=== PATIENT | male | born 1960 | race Native Hawaiian/Other Pacific Islander ===

== ENCOUNTER 2016-10-23 23:10 | Emergency (ER) | payer BC ==
[~2016-10-23] VITALS: Ht 172.7 cm; Wt 77.1 kg
[2016-10-23 23:28] VITALS: BP 231/108
[2016-10-23 23:39] LABS: PLATELET COUNT 208 K/uL (142-355)
[2016-10-23 23:47] LABS: POTASSIUM 3.8 mmol/L (3.6-5.2); SODIUM 127 mmol/L (136-145)
[2016-10-24 00:52] VITALS: TEMP 98.7
== END 2016-10-24 00:52 | disposition home or self-care (01) ==
LOC: ED 23:10
DX: R07.89 Other chest pain (principal); E11.65 Type 2 diabetes mellitus with hyperglycemia; J44.9 Chronic obstructive pulmonary disease, unspecified; K80.20 Calculus of gallbladder without cholecystitis without obstruction
CPT/HCPCS: 80053; 82550; 83036; 84484; 85027; 86318; 93005; 96374; 99285; J2270

== ENCOUNTER 2017-04-13 09:33 | Emergency (ER) | payer BC ==
[~2017-04-13] VITALS: Ht 172.7 cm; Wt 74.8 kg
[2017-04-13 09:30] VITALS: TEMP 97.6
[2017-04-13 11:02] LABS: POTASSIUM 3.9 mmol/L (3.6-5.2); SODIUM 138 mmol/L (136-145)
[2017-04-13 11:03] LABS: PARTIAL THROMBOPLASTIN TIME 21.4 SECONDS (24.5-33.6)
[2017-04-13 11:04] LABS: PLATELET COUNT 208 K/uL (142-355)
[2017-04-13 11:30] VITALS: BP 104/62
== END 2017-04-13 11:30 | disposition short-term general hospital (02) ==
LOC: ED 09:33
DX: I21.3 ST elevation (STEMI) myocardial infarction of unspecified site (principal)
CPT/HCPCS: 36415; 80053; 82550; 84484; 85027; 85610; 85730; 92977; 93005; 96361; 96365; 96375; 96376; 99285; J1650; J2270; J2405; J3101; J3490

== ENCOUNTER 2017-07-26 14:47 | Outpatient (CLI) | payer BC | END 2017-07-26 15:50 | disposition home or self-care (01) | LOC: RAD 14:47 | DX: R07.81 Pleurodynia (principal) ==

== ENCOUNTER → 2018-04-16 23:03 | Outpatient (CLI) | payer BC | END | disposition home or self-care (01) | LOC: AMB 23:03 | DX: R53.1 Weakness (principal) ==

== ENCOUNTER 2018-05-09 09:04 | Observation (INO) | payer BC ==
[~2018-05-09] VITALS: Ht 172.7 cm; Wt 74.5 kg
[2018-05-09 09:08] VITALS: BP 141/67; TEMP 97.2
[2018-05-09 09:56] LABS: PLATELET COUNT 168 K/uL (142-355)
[2018-05-09 10:01] LABS: POTASSIUM 4.1 mmol/L (3.6-5.2); SODIUM 137 mmol/L (136-145)
[2018-05-09 10:09] LABS: PARTIAL THROMBOPLASTIN TIME 24.1 SECONDS (24.5-33.6)
[2018-05-09 11:00] VITALS: BP 141/67
[2018-05-09 13:47] VITALS: BP 148/80; TEMP 98.8; Ht 172.7 cm; Wt 74.5 kg
[2018-05-09 16:00] VITALS: BP 148/80; TEMP 98.8
[2018-05-09 20:16] VITALS: BP 157/80; TEMP 97.8
[2018-05-10 00:18] VITALS: BP 122/67; TEMP 98.3
[2018-05-10 04:26] VITALS: BP 133/74; TEMP 98.4
[2018-05-10 08:00] VITALS: BP 150/68; TEMP 97.7
[2018-05-10 12:00] VITALS: BP 133/72; TEMP 98.1
== END 2018-05-10 13:30 | disposition home or self-care (01) ==
LOC: ED 09:04 → MED/SURG 11:13
PROVIDERS: Internal Medicine
DX: R07.89 Other chest pain (principal); N40.0 Benign prostatic hyperplasia without lower urinary tract symptoms; N52.9 Male erectile dysfunction, unspecified; G35 Multiple sclerosis; I25.10 Atherosclerotic heart disease of native coronary artery without angina pectoris; J44.9 Chronic obstructive pulmonary disease, unspecified; E11.42 Type 2 diabetes mellitus with diabetic polyneuropathy; E03.8 Other specified hypothyroidism; E11.649 Type 2 diabetes mellitus with hypoglycemia without coma; R04.0 Epistaxis
CPT/HCPCS: 36415; 80048; 80053; 82550; 82948; 84484; 85027; 85610; 85730; 93005; 96374; 99220; 99283; G0378; J1815

== ENCOUNTER 2018-10-26 18:09 | Emergency (ER) | payer BC ==
[~2018-10-26] VITALS: Ht 172.7 cm; Wt 74.4 kg
[2018-10-26 19:16] LABS: PLATELET COUNT 215 K/uL (142-355)
[2018-10-26 19:31] LABS: POTASSIUM 3.9 mmol/L (3.6-5.2); SODIUM 141 mmol/L (136-145)
[2018-10-26 22:49] VITALS: BP 176/72; TEMP 98.1
== END 2018-10-26 22:53 | disposition home or self-care (01) ==
LOC: ED 18:09
PROVIDERS: Emergency Medicine
DX: N20.1 Calculus of ureter (principal); R07.89 Other chest pain
CPT/HCPCS: 36415; 80053; 82550; 82553; 84484; 85027; 85379; 93005; 96374; 96375; 96376; 99284; J1885; J2270; J2405; J2550; J7060; Q9963

== ENCOUNTER 2020-02-12 15:49 | Outpatient (CLI) | payer BC, OTHER ==
[~2020-02-12 15:49] MED LIST: ABILIFY2 MG PO; CLOP75TA2 PO; COZAAR100 MG PO; DULOXETINE HYDR60 MG PO; EUTHYROX50 MCG PO; GABA300C2 PO; METO100T37 PO
== END 2020-02-12 20:43 | disposition home or self-care (01) ==
LOC: LAB 15:49
DX: Z20.828 Contact with and (suspected) exposure to other viral communicable diseases (principal)
CPT/HCPCS: 87635; U0002

== ENCOUNTER 2020-02-22 12:06 | Observation (INO) | payer BC ==
[~2020-02-22] VITALS: Ht 172.7 cm; Wt 88.6 kg
[2020-02-22 12:23] VITALS: BP 149/78; TEMP 97.7
[2020-02-22 12:48] LABS: PLATELET COUNT 198 K/uL (142-355)
[2020-02-22 13:01] LABS: POTASSIUM 4.5 mmol/L (3.6-5.2); SODIUM 136 mmol/L (136-145)
[2020-02-22 13:19] VITALS: BP 136/74
[2020-02-22 13:32] LABS: PARTIAL THROMBOPLASTIN TIME 24.3 SECONDS (24.5-33.6)
[2020-02-22 14:24] VITALS: BP 155/85; TEMP 97.9; Ht 172.7 cm; Wt 88.6 kg
[2020-02-22] MEDS ORDERED: TRESIBA FL200 UNIT/M SC ×2 (14:44→14:45)
[2020-02-22] MEDS ORDERED: CRESTOR5 MG PO (14:45)
[2020-02-22] MEDS ORDERED: PANTOPRAZOLE 40MG TA PO (14:46)
[2020-02-22] MEDS ORDERED: ASPIRIN 81 LOW81 MG PO (14:48)
[2020-02-22 16:00] VITALS: BP 142/84; TEMP 97.9
[2020-02-22 20:03] VITALS: BP 134/67; TEMP 98.6
[2020-02-23 00:14] VITALS: BP 119/60; TEMP 98.1
[2020-02-23 04:05] VITALS: BP 122/65; TEMP 98
[2020-02-23 08:00] VITALS: BP 104/64; TEMP 97.5
[2020-02-23 12:00] VITALS: BP 168/70; TEMP 98.6
== END 2020-02-23 14:15 | disposition home or self-care (01) ==
LOC: ED 12:06 → MED/SURG 13:20
PROVIDERS: Hospitalist; ADMIT Internal Medicine Endocrinology, Diabetes & Metabolism
DX: R55 Syncope and collapse (principal); Z86.73 Personal history of transient ischemic attack (TIA), and cerebral infarction without residual deficits; G35 Multiple sclerosis; E03.8 Other specified hypothyroidism; I25.10 Atherosclerotic heart disease of native coronary artery without angina pectoris; J44.9 Chronic obstructive pulmonary disease, unspecified; E86.0 Dehydration; E11.42 Type 2 diabetes mellitus with diabetic polyneuropathy; F32.89 Other specified depressive episodes
CPT/HCPCS: 36415; 80053; 81000; 82550; 83880; 84443; 84484; 85027; 85610; 85730; 86318; 93005; 96360; 96361; 96375; 99220; 99284; G0378; J1650; J1815; J1885; J2405

== ENCOUNTER 2020-05-31 16:34 | Outpatient (CLI) | payer BC ==
[~2020-05-31 16:34] MED LIST changes: +ASPIRIN 81 LOW81 MG PO; +CRESTOR5 MG PO; +PANTOPRAZOLE 40MG TA PO; +TRESIBA FL200 UNIT/M SC
== END 2020-05-31 21:32 | disposition home or self-care (01) ==
LOC: RAD 16:34
DX: Z03.818 Encounter for observation for suspected exposure to other biological agents ruled out (principal)

== ENCOUNTER 2021-04-30 20:19 | Emergency (ER) | payer BC ==
[~2021-04-30] VITALS: Ht 172.7 cm; Wt 88.5 kg
[2021-04-30 21:05] LABS: PLATELET COUNT 243 K/uL (142-355)
[2021-04-30 21:16] LABS: SODIUM 141 mmol/L (136-145)
[2021-04-30 23:09] VITALS: BP 156/83; TEMP 98.3
== END 2021-04-30 23:09 | disposition home or self-care (01) ==
LOC: ED 20:19
PROVIDERS: Emergency Medicine
DX: R42 Dizziness and giddiness (principal); R11.2 Nausea with vomiting, unspecified; I10 Essential (primary) hypertension
CPT/HCPCS: 80053; 82150; 83690; 84484; 85008; 85027; 93005; 99283; J2405

== ENCOUNTER 2021-09-14 09:47 | Day surgery (SDC) | payer BC ==
[2021-07-29 10:57] LABS: PLATELET COUNT 158 K/uL (142-355)
[2021-07-29 11:18] LABS: POTASSIUM 4.1 mmol/L (3.6-5.2)
[~2021-09-14] VITALS: Ht 12.7 cm; Wt 0.0 kg
[~2021-09-14 09:47] MED LIST changes: +IBU800 MG PO; +NOVOLIN R100 UNIT/1 IM
== END 2021-09-14 15:02 | disposition home or self-care (01) ==
LOC: OR 09:47
PROVIDERS: ATTEND Internal Medicine Gastroenterology
PROC: 0DJD8ZZ Inspection of Lower Intestinal Tract, Via Natural or Artificial Opening Endoscopic (ICD-10-PCS; principal; 2021-09-14)
DX: K57.30 Diverticulosis of large intestine without perforation or abscess without bleeding (principal); K64.8 Other hemorrhoids; Z86.010 Personal history of colon polyps; Z12.11 Encounter for screening for malignant neoplasm of colon; Z20.822 Contact with and (suspected) exposure to COVID-19
CPT/HCPCS: 80053; 85027; 87635; J2405; J2704; U0003

== ENCOUNTER 2021-09-14 10:44 | Emergency (ER) | payer BC ==
[~2021-09-14] VITALS: Ht 172.7 cm; Wt 72.6 kg
[2021-09-14 10:44] VITALS: TEMP 97.4
[2021-09-14 10:56] LABS: PLATELET COUNT 200 K/uL (142-355)
[2021-09-14 11:25] LABS: PARTIAL THROMBOPLASTIN TIME 23.6 SECONDS (24.5-33.6)
[2021-09-14 13:00] VITALS: BP 139/72
== END 2021-09-14 13:15 | disposition home or self-care (01) ==
LOC: ED 10:44
PROVIDERS: Hospitalist
DX: E11.65 Type 2 diabetes mellitus with hyperglycemia (principal); Z79.4 Long term (current) use of insulin
CPT/HCPCS: 80053; 81002; 82550; 82948; 83880; 84484; 85027; 85610; 85730; 93005; 96360; 96361; 96375; 96376; 99284; J1815

== ENCOUNTER 2021-10-05 10:01 | Day surgery (SDC) | payer BC ==
[~2021-10-05] VITALS: Ht 30.5 cm; Wt 0.5 kg
== END 2021-10-05 13:56 | disposition home or self-care (01) ==
LOC: OR 10:01
PROVIDERS: ATTEND Internal Medicine Gastroenterology
PROC: 0DB88ZZ Excision of Small Intestine, Via Natural or Artificial Opening Endoscopic (ICD-10-PCS; principal; 2021-10-05)
PROC: 0DB68ZZ Excision of Stomach, Via Natural or Artificial Opening Endoscopic (ICD-10-PCS; 2021-10-05)
DX: K25.9 Gastric ulcer, unspecified as acute or chronic, without hemorrhage or perforation (principal); K29.00 Acute gastritis without bleeding; K29.80 Duodenitis without bleeding; K21.00 Gastro-esophageal reflux disease with esophagitis, without bleeding; D50.8 Other iron deficiency anemias; R11.2 Nausea with vomiting, unspecified; Z20.822 Contact with and (suspected) exposure to COVID-19
CPT/HCPCS: 87635; J2001; J2704; U0003

== ENCOUNTER 2022-06-06 13:17 | Emergency (ER) | payer BC ==
[~2022-06-06] VITALS: Ht 172.7 cm; Wt 81.6 kg
[2022-06-06 13:20] VITALS: TEMP 98.1
[2022-06-06 13:52] LABS: PLATELET COUNT 171 K/uL (142-355)
[2022-06-06 14:06] LABS: POTASSIUM 4.5 mmol/L (3.6-5.2)
[2022-06-06] MEDS ORDERED: TAMS0.4C PO (15:01)
[2022-06-06 15:54] VITALS: BP 162/85
== END 2022-06-06 16:05 | disposition home or self-care (01) ==
LOC: ED 13:17
PROVIDERS: Family Medicine
DX: N20.0 Calculus of kidney (principal); R51.9 Headache, unspecified; R11.2 Nausea with vomiting, unspecified; Z20.822 Contact with and (suspected) exposure to COVID-19
CPT/HCPCS: 80053; 81002; 82150; 82550; 83690; 84484; 85027; 87635; 93005; 96360; 96374; 96375; 99284; J1885; J2175; J2270; J2405; J2550; U0003

== ENCOUNTER 2022-07-17 14:29 | Emergency (ER) | payer BC ==
[~2022-07-17] VITALS: Ht 172.7 cm; Wt 63.5 kg
[~2022-07-17 14:29] MED LIST changes: +TAMS0.4C PO
[2022-07-17 15:18] LABS: PLATELET COUNT 213 K/uL (142-355)
[2022-07-17 15:19] LABS: POTASSIUM 5.5 mmol/L (3.6-5.2)
[2022-07-17 16:34] VITALS: BP 118/48; TEMP 97.1
[2022-07-17 17:12] LABS: POTASSIUM 4.3 mmol/L (3.6-5.2)
== END 2022-07-17 18:30 | disposition short-term general hospital (02) ==
LOC: ED 14:29
PROVIDERS: Emergency Medicine Emergency Medical Services
PROC: 0T9B70Z Drainage of Bladder with Drainage Device, Via Natural or Artificial Opening (ICD-10-PCS; principal; 2022-07-17)
DX: J18.9 Pneumonia, unspecified organism (principal); E11.10 Type 2 diabetes mellitus with ketoacidosis without coma; Z79.4 Long term (current) use of insulin; Z91.81 History of falling; Z11.52 Encounter for screening for COVID-19
CPT/HCPCS: 36415; 36600; 51702; 80048; 80053; 80307; 81002; 82805; 83605; 83735; 84484; 85027; 87040; 87635; 93005; 94664; 96360; 96361; 96365; 96366; 96375; 99284; J0696; J1815; J2060; J2405; J3490; U0003

== ENCOUNTER 2022-10-04 16:16 | Outpatient (CLI) | payer BC | END 2022-10-04 20:15 | disposition home or self-care (01) | LOC: RAD 16:16 | PROVIDERS: ATTEND Nurse Practitioner Family | DX: M25.532 Pain in left wrist (principal); M79.642 Pain in left hand ==

== ENCOUNTER 2022-10-17 11:12 | Outpatient (CLI) | payer BC ==
[~2022-10-17 11:12] MED LIST changes: -EUTHYROX50 MCG PO; +EUTHYROX88 MCG PO
[2022-10-18] MEDS ORDERED: ASPI325T40 PO (10:12)
[2022-10-18] MEDS ORDERED: DQZATE100 MG PO (10:12)
[2022-10-18] MEDS ORDERED: GABA400C2 PO (10:13)
[2022-10-18] MEDS ORDERED: LEVE5MLUD PO (10:13)
[2022-10-18] MEDS ORDERED: PULMICORT180 MCG/AC INH (10:14)
[2022-10-18] MEDS ORDERED: PANTOPRAZOLE 40MG TA PO (10:18)
[2022-10-18] MEDS ORDERED: TESSALON PER100 MG PO (10:18)
[2022-10-18] MEDS ORDERED: Z-PAK PO (10:19)
[2022-10-18] MEDS ORDERED: MIDO5TAB PO (10:20)
[2022-10-18] MEDS ORDERED: FLUC200T PO (10:22)
[2022-10-18] MEDS ORDERED: PROMETHAZINE12.5 M3 PO (10:24)
[2022-10-18] MEDS ORDERED: IPRATROPIUM/ INH (10:24)
[2022-10-18] MEDS ORDERED: LIPITOR80 MG PO (10:26)
[2022-10-18] MEDS ORDERED: NOVOLOG FL100 UNIT/M SC (10:26)
[2022-10-18] MEDS ORDERED: METOCLOPRAMIDE10 M1 PO (10:27)
[2022-10-18] MEDS ORDERED: NITR0.4S2 SL (10:27)
[2022-10-18] MEDS ORDERED: AMANTADINE50 MG/5 ML PO (10:28)
[2022-10-18] MEDS ORDERED: LEVEMIR FL100 UNIT/M SC (10:29)
== END 2022-10-17 19:01 | disposition home or self-care (01) ==
LOC: RAD 11:12
PROVIDERS: ATTEND Internal Medicine
DX: J40 Bronchitis, not specified as acute or chronic (principal)

== ENCOUNTER 2022-10-17 19:26 | Inpatient (IN) | payer BC ==
[~2022-10-17] VITALS: Ht 172.7 cm; Wt 60.1 kg
[2022-10-17 19:30] VITALS: BP 161/81; TEMP 104.9
[2022-10-17 20:27] LABS: PLATELET COUNT 126 K/uL (142-355)
[2022-10-17 20:29] LABS: POTASSIUM 2.5 mmol/L (3.6-5.2)
[2022-10-17 20:42] LABS: PARTIAL THROMBOPLASTIN TIME 27.6 SECONDS (24.5-33.6)
[2022-10-17 21:02] VITALS: TEMP 100.5
[2022-10-18] VITALS (7 sets, daily range): BP systolic 136–158; BP diastolic 61–90; TEMP 97.7–99.5; Ht 172.7 cm; Wt 60.1 kg
[2022-10-18 05:12] LABS: PLATELET COUNT 103 K/uL (142-355)
[2022-10-18] MEDS ORDERED: DQZATE100 MG PO (10:12)
[2022-10-18] MEDS ORDERED: ASPI325T40 PO (10:12)
[2022-10-18] MEDS ORDERED: LEVE5MLUD PO (10:13)
[2022-10-18] MEDS ORDERED: GABA400C2 PO (10:13)
[2022-10-18] MEDS ORDERED: PULMICORT180 MCG/AC INH (10:14)
[2022-10-18] MEDS ORDERED: PANTOPRAZOLE 40MG TA PO (10:18)
[2022-10-18] MEDS ORDERED: TESSALON PER100 MG PO (10:18)
[2022-10-18] MEDS ORDERED: Z-PAK PO (10:19)
[2022-10-18] MEDS ORDERED: MIDO5TAB PO (10:20)
[2022-10-18] MEDS ORDERED: FLUC200T PO (10:22)
[2022-10-18] MEDS ORDERED: PROMETHAZINE12.5 M3 PO (10:24)
[2022-10-18] MEDS ORDERED: IPRATROPIUM/ INH (10:24)
[2022-10-18] MEDS ORDERED: LIPITOR80 MG PO (10:26)
[2022-10-18] MEDS ORDERED: NOVOLOG FL100 UNIT/M SC (10:26)
[2022-10-18] MEDS ORDERED: NITR0.4S2 SL (10:27)
[2022-10-18] MEDS ORDERED: METOCLOPRAMIDE10 M1 PO (10:27)
[2022-10-18] MEDS ORDERED: AMANTADINE50 MG/5 ML PO (10:28)
[2022-10-18] MEDS ORDERED: LEVEMIR FL100 UNIT/M SC (10:29)
[2022-10-19] VITALS: BP 154/79; TEMP 99.7
[2022-10-19 04:00] VITALS: BP 158/91; TEMP 97.6
[2022-10-19 04:10] LABS: PLATELET COUNT 86 K/uL (142-355)
[2022-10-19 04:25] LABS: POTASSIUM 3.2 mmol/L (3.6-5.2)
[2022-10-19 08:00] VITALS: BP 144/87; TEMP 98.9
[2022-10-19] MEDS ORDERED: CEFD300C2 PO (09:18)
== END 2022-10-19 11:50 | disposition home or self-care (01) | DRG 203 ==
LOC: ED 19:26 → MED/SURG 21:00
PROVIDERS: Internal Medicine; ADMIT Emergency Medicine; ATTEND Internal Medicine
DX: J20.9 Acute bronchitis, unspecified (principal); R50.9 Fever, unspecified; I25.10 Atherosclerotic heart disease of native coronary artery without angina pectoris; I69.328 Other speech and language deficits following cerebral infarction; E03.8 Other specified hypothyroidism; E78.49 Other hyperlipidemia; I10 Essential (primary) hypertension; K21.9 Gastro-esophageal reflux disease without esophagitis; G35 Multiple sclerosis; Z93.1 Gastrostomy status; M15.8 Other polyosteoarthritis; N40.0 Benign prostatic hyperplasia without lower urinary tract symptoms; E11.42 Type 2 diabetes mellitus with diabetic polyneuropathy; E11.65 Type 2 diabetes mellitus with hyperglycemia; Z79.85 Long-term (current) use of injectable non-insulin antidiabetic drugs; E11.649 Type 2 diabetes mellitus with hypoglycemia without coma
CPT/HCPCS: 36415; 80048; 80053; 81002; 82550; 83605; 83880; 84484; 85027; 85610; 85730; 87040; 87635; 93005; 96360; 96361; 96365; 96366; 99284; J0696; J1815; U0003

== ENCOUNTER 2022-10-31 08:49 | Outpatient (CLI) | payer BC ==
[~2022-10-31] VITALS: Ht 172.7 cm; Wt 60.1 kg
[~2022-10-31 08:49] MED LIST changes: +AMANTADINE50 MG/5 ML PO; +ASPI325T40 PO; +CEFD300C2 PO; +DQZATE100 MG PO; +FLUC200T PO; +GABA400C2 PO; +IPRATROPIUM/ INH; +LEVE5MLUD PO; +LEVEMIR FL100 UNIT/M SC; +LIPITOR80 MG PO; +METOCLOPRAMIDE10 M1 PO; +MIDO5TAB PO; +NITR0.4S2 SL; +NOVOLOG FL100 UNIT/M SC; +PROMETHAZINE12.5 M3 PO; +PULMICORT180 MCG/AC INH; +TESSALON PER100 MG PO; +Z-PAK PO
[2022-10-31 08:55] VITALS: BP 94/503; TEMP 98.5
== END 2022-10-31 19:14 | disposition home or self-care (01) ==
LOC: INF 08:49
PROVIDERS: ATTEND Internal Medicine
DX: E86.0 Dehydration (principal)
CPT/HCPCS: 96360; 96361; J3490

== ENCOUNTER 2022-11-13 10:54 | Outpatient (CLI) | payer BC ==
[~2022-11-13] VITALS: Ht 165.1 cm; Wt 61.7 kg
[2022-11-13 11:05] VITALS: BP 113/68; TEMP 97.58
[2022-11-13 20:10] VITALS: BP 151/81; TEMP 97.9
== END 2022-11-13 19:05 | disposition home or self-care (01) ==
LOC: INF 10:54
PROVIDERS: ATTEND Internal Medicine
DX: E86.0 Dehydration (principal)
CPT/HCPCS: 96365; 96366; J3490

== ENCOUNTER 2022-11-17 16:55 | Outpatient (CLI) | payer BC ==
[~2022-11-17] VITALS: Ht 165.1 cm; Wt 61.7 kg
[2022-11-17 17:00] VITALS: BP 156/87; TEMP 97.8
[2022-11-17 17:08] VITALS: BP 156/87; TEMP 97
[2022-11-17 17:50] VITALS: BP 152/78; BP 156/78; TEMP 98
== END 2022-11-17 20:00 | disposition home or self-care (01) ==
LOC: INF 16:55
PROVIDERS: ATTEND Internal Medicine
DX: K94.29 Other complications of gastrostomy (principal)
CPT/HCPCS: 96365; J1580

== ENCOUNTER 2022-11-18 06:00 | Outpatient (CLI) | payer BC ==
[~2022-11-18] VITALS: Ht 172.7 cm; Wt 61.2 kg
[2022-11-18 14:55] VITALS: BP 113/65; TEMP 98.2
[2022-11-18 15:45] VITALS: BP 121/72; TEMP 97.8
== END 2022-11-18 20:15 | disposition home or self-care (01) ==
LOC: INF 06:00
PROVIDERS: ATTEND Internal Medicine
DX: K94.29 Other complications of gastrostomy (principal)
CPT/HCPCS: 80170; 96365; J1580

== ENCOUNTER 2022-11-19 14:43 | Outpatient (CLI) | payer BC ==
[~2022-11-19] VITALS: Ht 170.2 cm; Wt 61.2 kg
[2022-11-19 14:55] VITALS: BP 137/75; TEMP 98.3
[2022-11-19 15:34] VITALS: BP 153/74; TEMP 99.7
== END 2022-11-19 19:02 | disposition home or self-care (01) ==
LOC: INF 14:43
PROVIDERS: ATTEND Internal Medicine
DX: K94.29 Other complications of gastrostomy (principal)
CPT/HCPCS: 96365; J1580

== ENCOUNTER 2022-11-20 14:08 | Outpatient (CLI) | payer BC ==
[~2022-11-20] VITALS: Ht 172.7 cm; Wt 61.2 kg
[2022-11-20 14:20] VITALS: BP 127/74; TEMP 97.7
== END 2022-11-20 20:24 | disposition home or self-care (01) ==
LOC: INF 14:08
PROVIDERS: ATTEND Internal Medicine
DX: K94.29 Other complications of gastrostomy (principal)
CPT/HCPCS: 96365; J1580

== ENCOUNTER 2022-11-21 09:09 | Outpatient (CLI) | payer BC ==
[~2022-11-21] VITALS: Ht 172.7 cm; Wt 61.2 kg
[2022-11-21 14:22] VITALS: BP 126/72; TEMP 98
== END 2022-11-21 23:12 | disposition home or self-care (01) ==
LOC: INF 09:09
PROVIDERS: ATTEND Internal Medicine
DX: K94.29 Other complications of gastrostomy (principal)
CPT/HCPCS: 36415; 80170; 96365; J1580

== ENCOUNTER 2022-11-26 11:14 | Emergency (ER) | payer BC ==
[~2022-11-26] VITALS: Ht 172.7 cm; Wt 61.7 kg
[2022-11-26 11:23] VITALS: BP 139/83; TEMP 97.4
[2022-11-26 12:51] LABS: PLATELET COUNT 129 K/uL (142-355)
[2022-11-26 12:58] LABS: POTASSIUM 4.1 mmol/L (3.6-5.2)
== END 2022-11-26 15:46 | disposition home or self-care (01) ==
LOC: ED 11:14
PROVIDERS: Emergency Medicine
DX: K29.60 Other gastritis without bleeding (principal); E86.0 Dehydration
CPT/HCPCS: 36415; 80053; 85027; 93005; 96360; 96361; 96374; 96375; 99283; 99284; J2405; J2765; J3490

== ENCOUNTER 2022-12-10 06:15 | Emergency (ER) | payer BC ==
[~2022-12-10] VITALS: Ht 172.7 cm; Wt 81.6 kg
[2022-12-10 07:03] LABS: PLATELET COUNT 125 K/uL (142-355)
[2022-12-10 07:15] LABS: POTASSIUM 3.2 mmol/L (3.6-5.2)
[2022-12-10 07:19] LABS: PARTIAL THROMBOPLASTIN TIME 21.6 SECONDS (24.5-33.6)
[2022-12-10 08:49] VITALS: BP 126/69; TEMP 97.1
== END 2022-12-10 08:49 | disposition home or self-care (01) ==
LOC: ED 06:15
PROVIDERS: Emergency Medicine
PROC: 0HQ1XZZ Repair Face Skin, External Approach (ICD-10-PCS; principal; 2022-12-10)
DX: S01.112A Laceration without foreign body of left eyelid and periocular area, initial encounter (principal); R51.9 Headache, unspecified; S13.4XXA Sprain of ligaments of cervical spine, initial encounter; R04.0 Epistaxis; S00.83XA Contusion of other part of head, initial encounter; S40.011A Contusion of right shoulder, initial encounter; E87.6 Hypokalemia; D64.89 Other specified anemias; E11.9 Type 2 diabetes mellitus without complications; Z79.4 Long term (current) use of insulin; H61.23 Impacted cerumen, bilateral; W01.198A Fall on same level from slipping, tripping and stumbling with subsequent striking against other object, initial encounter; Y92.89 Other specified places as the place of occurrence of the external cause
CPT/HCPCS: 80053; 83735; 83880; 84484; 85027; 85610; 85730; 93005; 96374; 96375; 99284; J2270; J2405

== ENCOUNTER 2022-12-28 10:39 | Outpatient (CLI) | payer BC ==
[~2022-12-28] VITALS: Ht 172.7 cm; Wt 57.2 kg
[2022-12-28 10:47] VITALS: BP 103/66
== END 2022-12-28 19:34 | disposition home or self-care (01) ==
LOC: INF 10:39
PROVIDERS: ATTEND Internal Medicine
DX: E86.0 Dehydration (principal)
CPT/HCPCS: 96360; J3490

== ENCOUNTER 2023-01-08 14:29 | Observation (INO) | payer BC ==
[~2023-01-08] VITALS: Ht 165.1 cm; Wt 54.5 kg
[2023-01-08 14:35] VITALS: BP 126/73; TEMP 97.9
[2023-01-08 14:36] VITALS: BP 86/56
[2023-01-08 14:37] VITALS: BP 72/50
[2023-01-08 15:28] LABS: POTASSIUM 4.2 mmol/L (3.6-5.2)
[2023-01-08 15:29] LABS: PLATELET COUNT 157 K/uL (142-355)
[2023-01-08 15:56] VITALS: BP 124/65
[2023-01-08 20:17] VITALS: BP 156/78; TEMP 98.4; Ht 165.1 cm; Wt 54.5 kg
[2023-01-09] VITALS (10 sets, daily range): BP systolic 122–158; BP diastolic 66–80; TEMP 98.2–99.2
[2023-01-09 06:55] LABS: PLATELET COUNT 99 K/uL (142-355)
[2023-01-09] MEDS ORDERED: LEVE500T5 PO (12:42)
[2023-01-09] MEDS ORDERED: CLOP75TA2 PO (12:43)
[2023-01-09] MEDS ORDERED: KLOR-CON M2020 MEQ PO (12:46)
[2023-01-09] MEDS ORDERED: MEGESTROL AC20 MG PO (12:47)
[2023-01-09] MEDS ORDERED: AMANTADINE100 M1 PO (12:50)
[2023-01-10 03:39] VITALS: BP 145/69; TEMP 99.2
[2023-01-10 08:00] VITALS: BP 95/61; TEMP 97.9
[2023-01-10 12:00] VITALS: BP 103/63; TEMP 97.6
[2023-01-10] MEDS ORDERED: MEGE40TA32 PO (12:15)
== END 2023-01-10 17:11 | disposition home or self-care (01) ==
LOC: ED 14:29 → MED/SURG 19:30
PROVIDERS: ADMIT Emergency Medicine Emergency Medical Services; ATTEND Internal Medicine
DX: R53.1 Weakness (principal); R53.81 Other malaise; R63.4 Abnormal weight loss; E11.40 Type 2 diabetes mellitus with diabetic neuropathy, unspecified; R26.89 Other abnormalities of gait and mobility; J44.9 Chronic obstructive pulmonary disease, unspecified; G35 Multiple sclerosis; Z91.81 History of falling; E03.8 Other specified hypothyroidism; Z86.73 Personal history of transient ischemic attack (TIA), and cerebral infarction without residual deficits; I10 Essential (primary) hypertension; I25.2 Old myocardial infarction; D64.89 Other specified anemias; E78.49 Other hyperlipidemia; K21.9 Gastro-esophageal reflux disease without esophagitis; I95.1 Orthostatic hypotension; B48.8 Other specified mycoses
CPT/HCPCS: 36600; 80053; 81002; 82043; 82805; 82948; 83735; 84439; 84443; 84484; 85027; 93005; 96365; 96372; 99221; 99284; G0378

== ENCOUNTER 2023-01-15 06:37 | Emergency (ER) | payer BC ==
[~2023-01-15] VITALS: Ht 165.1 cm; Wt 68.0 kg
[~2023-01-15 06:37] MED LIST changes: +AMANTADINE100 M1 PO; +KLOR-CON M2020 MEQ PO; +LEVE500T5 PO; +MEGE40TA32 PO; +MEGESTROL AC20 MG PO
[2023-01-15 06:41] VITALS: TEMP 97.9
[2023-01-15 07:20] LABS: PLATELET COUNT 118 K/uL (142-355)
[2023-01-15 07:47] LABS: POTASSIUM 4.1 mmol/L (3.6-5.2)
[2023-01-15 10:44] VITALS: BP 148/84
== END 2023-01-15 10:48 | disposition still patient (30) ==
LOC: ED 06:37
PROVIDERS: Family Medicine
DX: R55 Syncope and collapse (principal); R62.7 Adult failure to thrive; G40.909 Epilepsy, unspecified, not intractable, without status epilepticus; S00.03XA Contusion of scalp, initial encounter; J32.0 Chronic maxillary sinusitis; W01.198A Fall on same level from slipping, tripping and stumbling with subsequent striking against other object, initial encounter; Y92.89 Other specified places as the place of occurrence of the external cause
CPT/HCPCS: 36600; 80053; 81002; 82542; 82550; 82805; 83735; 85027; 93005; 99284

== ENCOUNTER 2023-01-16 16:58 | Inpatient (IN) | payer BC | END 2023-02-12 14:10 | disposition still patient (30) | LOC: PAVB 16:58 | PROVIDERS: ADMIT Internal Medicine; ATTEND Internal Medicine | DX: G30.1 Alzheimer's disease with late onset (principal); R62.7 Adult failure to thrive; I95.1 Orthostatic hypotension; J44.9 Chronic obstructive pulmonary disease, unspecified; M62.81 Muscle weakness (generalized); R26.2 Difficulty in walking, not elsewhere classified; R27.8 Other lack of coordination; R41.841 Cognitive communication deficit; Z74.1 Need for assistance with personal care | CPT/HCPCS: 36415; 80048; 81000; 82947; 84439; 84443; 87081; 93005; A9576 ==

== ENCOUNTER 2023-01-16 19:47 | Outpatient (CLI) | payer BC | END 2023-01-16 22:18 | disposition home or self-care (01) | LOC: RAD 19:47 | PROVIDERS: ATTEND Internal Medicine | DX: R07.81 Pleurodynia (principal); W19.XXXA Unspecified fall, initial encounter ==

== ENCOUNTER 2023-01-23 09:40 | Emergency (ER) | payer BC ==
[~2023-01-23] VITALS: Ht 165.1 cm; Wt 55.6 kg
[2023-01-23 09:48] VITALS: BP 132/75; TEMP 97.6
== END 2023-01-23 10:56 | disposition home or self-care (01) ==
LOC: ED 09:40
DX: S00.03XA Contusion of scalp, initial encounter (principal); S50.02XA Contusion of left elbow, initial encounter; S50.312A Abrasion of left elbow, initial encounter; W01.198A Fall on same level from slipping, tripping and stumbling with subsequent striking against other object, initial encounter; Y92.89 Other specified places as the place of occurrence of the external cause
CPT/HCPCS: 99283

== ENCOUNTER → 2023-01-26 | Outpatient (CLI) | payer BC | LOC: LAB 20:13 | PROVIDERS: ATTEND Internal Medicine | DX: N39.0 Urinary tract infection, site not specified (principal) | CPT/HCPCS: 81000 ==

== ENCOUNTER 2023-01-30 14:25 | Outpatient (CLI) | payer BC | END 2023-01-30 22:44 | disposition home or self-care (01) | LOC: MRI 14:25 | PROVIDERS: ATTEND Internal Medicine | DX: Z86.19 Personal history of other infectious and parasitic diseases (principal) ==

== ENCOUNTER 2023-03-05 15:18 | Emergency (ER) | payer BC ==
[~2023-03-05] VITALS: Ht 165.1 cm; Wt 55.3 kg
[2023-03-05 15:23] VITALS: TEMP 97.4
[2023-03-05 16:17] LABS: PLATELET COUNT 133 K/uL (142-355)
[2023-03-05 16:22] LABS: POTASSIUM 4.6 mmol/L (3.6-5.2)
[2023-03-05 18:30] VITALS: BP 154/73
== END 2023-03-05 18:57 | disposition short-term general hospital (02) ==
LOC: ED 15:18
PROVIDERS: Emergency Medicine Emergency Medical Services
DX: I63.9 Cerebral infarction, unspecified (principal)
CPT/HCPCS: 36415; 80053; 84484; 85027; 85610; 93005; 96374; 96375; 99284; J2270; J2405

== ENCOUNTER 2023-04-06 12:52 | Outpatient (CLI) | payer BC | END 2023-04-06 20:51 | disposition home or self-care (01) | LOC: RAD 12:52 | PROVIDERS: ATTEND Internal Medicine | DX: M25.552 Pain in left hip (principal); W19.XXXA Unspecified fall, initial encounter ==

== ENCOUNTER 2023-06-22 10:48 | Outpatient (CLI) | payer BC | END 2023-06-22 19:09 | disposition home or self-care (01) | LOC: RAD 10:48 | PROVIDERS: ATTEND Internal Medicine | DX: M54.2 Cervicalgia (principal); M25.511 Pain in right shoulder ==

== ENCOUNTER 2023-07-19 00:50 | Observation (INO) | payer BC ==
[~2023-07-19] VITALS: Ht 167.6 cm; Wt 55.3 kg
[2023-07-19] VITALS (7 sets, daily range): BP systolic 133–152; BP diastolic 71–88; TEMP 96.8–98.2; Ht 167.6 cm; Wt 55.3 kg
[~2023-07-19 00:50] MED LIST changes: +ALPR0.5T24 PO; +FLUD0.1T PO; +LEVO0.08 PO; +NOVOLOG100 UNIT/M SC
[2023-07-19 01:51] LABS: PLATELET COUNT 114 K/uL (142-355)
[2023-07-19 02:29] LABS: POTASSIUM 4.7 mmol/L (3.6-5.2)
[2023-07-19] MEDS ORDERED: DULOXETINE HYDR60 MG PO (03:33)
[2023-07-20] VITALS: BP 157/75; TEMP 98.7
[2023-07-20 04:00] VITALS: BP 156/80; TEMP 98.3
[2023-07-20 08:00] VITALS: BP 188/94; TEMP 98.2
[2023-07-20 12:08] VITALS: BP 157/69; TEMP 97.8
[2023-07-20 15:54] VITALS: BP 165/82; TEMP 97.4
== END 2023-07-20 17:10 | disposition home or self-care (01) ==
LOC: ED 00:50 → EDIP 02:50 → MED/SURG 02:51
PROVIDERS: Family Medicine; ADMIT Nurse Practitioner Family; ATTEND Internal Medicine
DX: R41.82 Altered mental status, unspecified (principal); R09.02 Hypoxemia; R00.1 Bradycardia, unspecified; Z86.61 Personal history of infections of the central nervous system; G35 Multiple sclerosis; G20 Parkinson's disease; E03.8 Other specified hypothyroidism; G40.802 Other epilepsy, not intractable, without status epilepticus; I95.89 Other hypotension; Z86.73 Personal history of transient ischemic attack (TIA), and cerebral infarction without residual deficits; N17.8 Other acute kidney failure; N18.9 Chronic kidney disease, unspecified; Z79.01 Long term (current) use of anticoagulants; R06.02 Shortness of breath
CPT/HCPCS: 80053; 83880; 84484; 85027; 93005; 96360; 96361; 96372; 99221; 99283; G0378; J2405